=== PATIENT | male | born 1935 | race African-American/Black ===

== ENCOUNTER 2017-07-12 11:22 | Emergency (ER) | payer OTHER ==
[~2017-07-12] VITALS: Ht 180.3 cm; Wt 80.0 kg
[2017-07-12 12:21] LABS: BASOPHILS % 0.3 % (0.0-2.0); EOSINOPHILS % 0.2 % (0.0-5.0); HEMOGLOBIN. 12.5 g/dL (14.0-18.0); MEAN CORPUSCULAR HEMOGLOBIN 29.2 pg (28.0-32.0); MEAN PLATELET VOLUME 8.1 fl (7.4-10.4); MONOCYTES % 12.8 % (2.0-8.0); NEUTROPHILS % 65.7 % (40.0-76.0); PLATELET 115 x1000/uL (130-400); RED BLOOD CELL COUNT 4.29 mill/uL (4.7-6.1)
[2017-07-12 12:33] LABS: CARBON DIOXIDE 31 mEq/L (21-32); CHLORIDE 105 mEq/L (98-107); TROPONIN I < 0.02 ng/mL (0.00-0.04)
[2017-07-12 16:30] VITALS: BP 149/73
== END 2017-07-12 16:33 | disposition home or self-care (01) ==
LOC: ER 12:40
DX: R55 Syncope and collapse (principal); E78.00 Pure hypercholesterolemia, unspecified; I10 Essential (primary) hypertension
CPT/HCPCS: 36415; 80053; 84484; 85025; 93005; 99285